=== PATIENT | female | born 1970 | race Caucasian/White ===

== ENCOUNTER → 2022-11-19 08:59 | Outpatient (BNVA) | payer OTHER, SELFPAY | PROVIDERS: PCP Nurse Practitioner Family; Visit Provider Hospitalist | DX: J44.9 Chronic obstructive pulmonary disease, unspecified (principal) ==

== ENCOUNTER 2025-02-16 15:37 | Outpatient (AMB) | payer BC, SELFPAY ==
--- OUTSIDE RECORDS SUMMARY | 2025-02-16 15:39 | XMS_ITS | Continuity of Care Document ---
Author Name [facility] Organization [facility] Care Team Providers Care Tuyere Fitter Name Role Phone [facility] Unavailable Unavailable Social History Combined list of available smoking, tobacco, and other social history from Department of Defense and Veterans Affairs facilities. Social History Type Response Date Comment Sourc e This section is an empty social history section. [facility]
[2025-02-16 15:56] VITALS: BP 132/82; PULSE 75; O2SAT 98; BMI 25.2
--- NOTE | 2025-02-16 15:56 | MHC.OFFVIS ---
Vital Signs 02/16/25 15:56 Height 5 ft 6 in Weight 156 lb BMI 25.2 BP 132/82 Blood Pressure Location Lt brachial Position Sitting Pulse 75 Pulse Source Pulse Oximeter Pulse Oximetry (%) 98 Oxygen Delivery Method Room Air Intake Visit Reasons: asthma Intake Note: pt is here for sick visit and states coughing, wheezing and had zpal, prednisone, symbicort albuterol neb and soem relief with z-chris but she having heaviness of in chest and short of breath, prednisone was 4 days 40mg with no taper. and z-chris. chest x-ray, covid flu,rsv all negative on Thursday. 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 Works in [employer] She has previous history of bronchial asthma/hyperreactive airways, with intermittent flare ups. Normally she uses Symbicort but only p.r.n.. She also has albuterol solution to use in the nebulizer and also albuterol HFA which she uses PRN. This time she was doing okay up until about 10 days ago. She was working out in the garden to get the ground ready for planting. Next day she started having scratchy throat, with mild nasal congestion and cough. It persisted for more than a few days and then she went to an urgent care clinic. Were she did have a chest x-ray and was told that it was negative. In addition to Symbicort and albuterol she was also given a course of prednisone which she has completed, and Z-Chris which also she has completed. While acute symptoms are over, she continues to have frequent bouts of cough, with some scratchy feeling in the throat. She denies any nasal congestion or postnasal drip. [facility] Medical History Asthma Pneumonia Social History Patient Tobacco Use Status: Never used Tobacco Review of Systems Const All systems reviewed & are unremarkable except as noted in HPI and below Eyes Reports no additional complaints ENT Reports nasal congestion (mild ) Card Reports no additional complaints Resp Reports as per HPI GI Reports no additional complaints Reports no additional complaints Musc Reports no additional complaints Skin/Breast Reports system reviewed and no additional complaints, except as documented Neuro Reports no additional complaints Psych Reports no additional complaints Endo Reports no additional complaints Scott/Lymph Reports no additional complaints Aller/Immun Reports no additional complaints Physical Exam Vital Signs: Last Vital Signs Pulse 75 02/16/25 15:56 BP 132/82 02/16/25 15:56 Pulse Ox 98 02/16/25 15:56 Oxygen Delivery Method Room Air 02/16/25 15:56 BMI result Body Mass Index 25.2 Const General: healthy appearing, comfortable, no acute distress, alert and awake Orientation/consciousness: patient oriented x3 HEENT Head: Yes normal to inspection General nose exam: No nasal polyps present and No nasal discharge present Face and sinus: Yes sinuses nontender Mouth: oropharynx normal Throat: Yes posterior oropharynx normal Eyes General: appearance normal, both eyes and all related structures Neck Neck: Yes normal visual inspection, Yes no lymphadenopathy, Yes trachea midline and Yes no JVD Thyroid: Thyroid normal Chest Chest palpation & inspection: normal inspection of the chest, normal palpation of entire chest wall and no tenderness Resp Other: Chest is symmetrical, percussion note resonant, she has equal breath sounds on both sides. She coughs when asked to take a deep breath. But does not have any audible wheezes or rhonchi. Cardio Palpation: normal PMI Rate: regular rate Rhythm: regular rhythm Heart sounds: no gallops and no murmurs Peripheral pulses: Peripheral pulses 2+ throughout GI Palpation (GI): Soft to palpation, nontender, No hepatosplenomegaly present and no masses Auscultation: normal bowel sounds Back/Spine/Pelvis Thoracic/Lumbar Spine: thoracic and lumbar spine normal to inspection Skin General skin exam: no rashes or lesions noted Neuro General: patient oriented x3 and no focal motor deficits Cranial nerves: Yes CN's II-XII intact bilaterally Extrem General: Yes normal to inspection, Yes no clubbing, cyanosis or edema and Yes no calf tenderness Psych Appearance: grossly normal and well kempt Speech and movement: Normal speech and movement present Assessment & Plan Assessment & Plan (1) Asthma: Comment: Patient has history of mild intermittent bronchial asthma, and reactive airways. No particular triggers are described. However she does get flare ups after any viral respiratory infection, or exposure to dust or fumes. Presently she is having a flare up/exacerbation of bronchial asthma/ reactive airways. Probably after exposure to an irritant environmental agent. Code(s): J45.909 - Unspecified asthma, uncomplicated Category: Medical Qualifiers: Asthma severity: mild Asthma persistence: intermittent Asthma complication type: uncomplicated Qualified Code(s): J45.20 - Mild intermittent asthma, uncomplicated Plan: I have ordered CBC with diff, to check for Eiosinophilia . And also IgE level . Treatment plan : Continue Symbicort 160-4.52 puffs b.i.d.. Albuterol HFA 2 puffs Q 6 hours p.r.n. Or alternatively use albuterol solution in the nebulizer Q 4-6 hours p.r.n., No need to use any antibiotic agents at this time. Also I do not think that she will benefit from any additional prednisone at this time. Gargle throat with warm water 2 or 3 times a day Feel free to call and discuss about the progress in 1 week to 10 days. Orders: Orders Immunoglobulin E Today J45.20 - Mild intermittent asthma, uncomplicated, J45.998 - Other asthma Complete Blood Count Auto Diff Today J45.20 - Mild intermittent asthma, uncomplicated, J45.998 - Other asthma Coding Level of Care Code Est Pt Level 3 (87328) Diagnoses Mild intermittent asthma without complication J45.20 Asthma severity: mild Asthma persistence: intermittent Asthma complication type: uncomplicated
== END 2025-02-16 16:19 | disposition home or self-care (01) ==
LOC: HO.HPS 15:38
PROVIDERS: PCP Student in an Organized Health Care Education/Training Program; Visit Provider Internal Medicine
DX: J45.20 Mild intermittent asthma, uncomplicated (principal)
CPT/HCPCS: 99213

== ENCOUNTER 2025-02-16 15:37 | Outpatient (REF) | payer BC, SELFPAY ==
[2025-02-16 16:36] LABS: MANUAL DIFF FLAG NO
[2025-02-16 17:06] LABS: Basophils Percent Auto 0.3 % (0-2); Eosinophils Absolute Auto 0.1 X10*3/uL (0.0-0.4); Eosinophils Percent Auto 1.3 % (0-4); Hematocrit 39.5 % (37.0-47.0); Hemoglobin 13.2 g/dl (12.0-16.0); Imm Gran Abs Auto 0.04 X10*3/uL (0.00-0.03); Imm Gran Pct Auto 0.6 % (0.0-0.4); Lymphocytes Absolute Auto 2.6 X10*3/uL (1.2-4.9); Mean Corpuscular HGB Conc 33.4 g/dl (31.0-35.0); Mean Corpuscular Hemoglobin 29.7 pg (27.0-33.0); Mean Corpuscular Volume 88.8 fL (80.0-98.0); Mean Platelet Volume 9.9 fL (9.4-12.3); Monocytes Absolute Auto 0.4 X10*3/uL (0.1-1.2); Monocytes Percent Auto 7.1 % (2-11); Neutrophils Absolute Auto 3.1 x10*3/uL (2.0-8.3); Neutrophils Percent Auto 49.7 % (45-73); Platelet Count 325 X10*3/uL (160-400); Red Blood Count 4.45 X10*6/uL (4.20-5.50); Red Cell Distribution Width 13.7 % (11.0-16.0); White Blood Count 6.2 X10*3/uL (4.8-10.8)
[2025-02-17 06:19] LABS: Immunoglobulin E 43 kU/L (<OR=114)
== END 2025-02-16 15:38 | disposition home or self-care (01) ==
LOC: HO.LAB 15:37
PROVIDERS: PCP Student in an Organized Health Care Education/Training Program; Visit Provider Internal Medicine
DX: J45.20 Mild intermittent asthma, uncomplicated (principal)
CPT/HCPCS: 36415; 82785; 85025

== ENCOUNTER 2025-04-28 15:20 | Outpatient (AMB) | payer BC, SELFPAY ==
--- OUTSIDE RECORDS SUMMARY | 2025-02-11 09:29 | XMS_ITS | Encounter Summary ---
Author Organization [facility] Address [address] [place] [id number] Phone Care Team Providers Care Service Advocate Contact Name Role Phone Lara Negron NEGOTIATOR SALES Unavailable [phone] Jignesh Ferraro EXCAVATOR BACKHOE OPERATOR Primary Care Provider [facility] Unavailable Encounter Details Date Type Department Care Team (Late st Contact Info) Description 02/11/2025 9:29 AM EDT Hospital Encounter [facility] [address] [place] [id number] Sharon Willis FNP [address] [place] [phone] [email or web address] Social History Tobacco Use Types Packs/Day Years Used Date Smoking Tobacco: Never Smokeless Tobacco: Never Alcohol Use Standard Drinks/Week Comments Yes 0 (1 standard drink = 0.6 oz pur e alcohol) 1.5-2 drinks, 2 x month Child or Family Care Answer Date Record ed Do you have problems with on e of the following making it difficult for you to work, study, or receive health care? No 02/07/2025 Education Answer Date Recorded Are you interested in help w ith more adult education (for example, completing high school, GED, job training, learning the Somali language, technical skills, or developing parenting skills)? No 02/07/2025 Are you concerned about learning? Not on file 02/07/2025 No 02/07/2025 Yes 02/07/2025 Food Answer Date Recorded Within the past 6 months we worried whether our food would run out before we got money to buy more. Never True 02/07/2025 Within the past 6 months the food we bought just didn't last and we didn't have enough money to get more. Never True Residential Stability Answer Date Recor ded What is your housing situation today? I have sada sing 02/07/2025 How many times have you move d in the past 12 months? Zero (I did not move) 02/07/2025 Paying for Meds Answer Date Recorded Do you have trouble paying for medicines? No 02/07/2025 Paying Utility Bills Answer Date Record ed Do you have trouble paying your heating or elect ricity bill? No 02/07/2025 Transportation Answer Date Recorded Has the lack of transportati on kept you from medical appointments or from getting medications? No 02/07/2025 Unemployment Answer Date Recorded Are you currently unemployed or working on a part-time or temporary basis, and looking for work? No 01/14/2022 Digital Access Answer Date Recorded No 02/07/2025 Yes 02/07/2025 Do you have reliable internet access at home? Ye s 02/07/2025 Do you have a device (e.g., phone, tablet, computer) with a working camera? Yes 02/07/2025 Intimate Partner Violence Answer Date R ecorded Denied Basic Needs Not on file 02/07/2025 In the past 12 months have y ou been in a relationship with a person who hurts, threatens, or tries to control you? No 02/07/2025 Worried food would run out Not on file 02/07 In the past 12 months have y ou been in a relationship with a person who hurts, threatens, or tries to control you? 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 Not on file Not on file documented as of this encounter Plan of Treatment Upcoming Encounters Date Type Department Care Team (Late st Contact Info) Description 02/20/2026 8:30 AM EDT Office Visit [facility] [address] [place] [address] Ferarro Jigneshjeri Hong, EXCAVATOR BACKHOE OPERATOR [address], [address] [place] [address] [email or web address] documented as of this encounter Procedures Procedure Name Priority Date/Time Associated Diagnosis Comments XR CHEST PA AND LATERAL 2 VIEWS Urgent/patient waiting 02/11/2025 9:34 AM EDT Acute upper respiratory infection documented in this encounter Results * XR CHEST PA AND LATERAL 2 VIEWS (02/11/2025 9:34 AM EDT) Anatomical Region Laterality Modality Chest Computed Radiogr aphy 02/11/2025 10:0 1 AM EDT Impressions 02/11/2025 10:02 AM EDT No acute abnormality. Narrative 02/11/2025 10:02 AM EDT XR CHEST PA AND LATERAL 2 VIEWS Referring clinician's provided indication for this examination in [facility]: Cough; sob, wheezing, asthma exac COMPARISON: None FINDINGS: Devices/Tubes/Lines: None. Lungs: The lungs are clear. No focal consolidation or pulmonary edema. Pleura: No pleural effusion or pneumothorax. Heart/Mediastinum: Normal heart and mediastinum. Bones/Soft Tissues: No significant skeletal abnormality. Procedure Note Jorje Hu MD - 02/11/2025 XR CHEST PA AND LATERAL 2 VIEWS Referring clinician's provided indication for this examination in [facility]:Cough; sob, wheezing, asthma exac COMPARISON: None FINDINGS: Devices/Tubes/Lines: None. Lungs: The lungs are clear. No focal consolidation or pulmonary edema. Pleura: No pleural effusion or pneumothorax. Heart/Mediastinum: Normal heart and mediastinum. Bones/Soft Tissues: No significant skeletal abnormality. IMPRESSION: No acute abnormality. us Sharon Willis FRAME STRAIGHTENER IMG XR CHEST Final Resul t documented in this encounter Visit Diagnoses Not on filedocumented in this encounter Additional Health Concerns Assessment Noted Time PHQ-2 Depression Total Score: 0 02/08/20 25 5:35 AM EDT documented as of this encounter Care Teams Service Advocate Contact Relationship Specialty Start Date End Date Jignesh Ferraro CNP [address] [place] [address], [address] [place] [address] PCP - General Family Medicine 11/17/23 Lara Negron NP [address] [place] [phone] Gynecology 11/02/19 Sheri Moore [address] [place] [address], [address] [place] [id number] [email or web address] Insurance Assigned Provider 11/05/24 documented as of this encounter Additional Source Comments The information contained in this document represents components of the legal health record. It is not the complete legal health record.[facility]
--- OUTSIDE RECORDS SUMMARY | 2025-04-28 15:22 | XMS_ITS | Continuity of Care Document ---
Author Name [facility] Organization [facility] Care Team Providers Care Director And Professor Name Role Phone [facility] Unavailable Unavailable Social History Combined list of available smoking, tobacco, and other social history from Department of Defense and Veterans Affairs facilities. Social History Type Response Date Comment Sourc e This section is an empty social history section. [facility]
--- NOTE | 2025-04-28 15:28 | A.OFFVIS_ITS ---
Vital Signs 04/28/25 15:29 Height 5 ft 6 in Weight 153 lb 3.54 oz BMI 24.7 BP 114/72 Blood Pressure Location Lt brachial Position Sitting Pulse 72 Pulse Source Pulse Oximeter Pulse Oximetry (%) 98 Oxygen Delivery Method Room Air Intake Visit Reasons: Asthma Wellness Instructor Required: No Accompanied by: Self / Same As Patient Allergies morphine (MORPHINE) Allergy (Intermediate, Verified 04/28/25 15:31) RASH Leonidas Dye Allergy (Unknown, Uncoded 02/16/25 16:22) Rash HPI Comments Details: The patient is a 54-year-old woman with a history of pneumonia and reactive airway disease. Apparently she was in her usual state health until couple weeks ago when she was exposed to COVID-19 from her . She had tested positive and has been quarantine. She developed a worsening cough and sinus congestion. She also developed chest tightness and shortness of breath. She had been using her rescue inhaler. She does have a nebulizer at home but she is not using it. She states that slowly she has been feeling better. Although, her cough tends to keep her up has a hard time sleeping. On examination she does have some wheezing throughout primarily in the expiratory phase. No crackles or rales so suggest recurrent pneumonia. The patient is no longer expectorating. Her cough is primarily dry hacky cough moderate severity. 11/19/2022 the patient is here for a pulmonary follow-up visit. The patient overall is feeling well. Back in August she did develop COVID again. However was not as bad as before. She did not take packs lobe it. The patient did write out. She did take her Symbicort more often. She did not use the albuterol because some cough significant amount of tremulousness and palpitations. Currently she is back to her baseline. She is taking the Symbicort as needed. The patient denies any shortness of breath or any residual symptoms. The patient does not have any recent x-rays or PFTs to review. Clinically the patient doing well. Her examination is also reassuring. Therefore go ahead and postpone her PFTs to next year along with a chest x-ray. In the meantime and the patient develops any worsening symptoms prior to that she is to call the office for an earlier evaluation. 04/28/2025 the patient is here for a pulmonary follow-up visit. She was sick back in January with a respiratory illness. She had blood work at that point the patient did have a elevation did granulocyte count suggesting infectious process although she also had exposure to dust suggesting the possibility of an allergic reaction. She did require prednisone. She had been using her nebulizer which was helpful and also her Symbicort. Now she is back to her baseline. She did have a chest x-ray in the [facility] and was per report okay. Therefore no additional imaging studies require. Her respiratory exam is reassuring completely normal. I will make sure for her to have all her medications available. If she has any other exacerbations she can always call. But for now she will continue with her current respiratory therapy. Will follo w-up in a year's time if she has any issues prior to that she will call further recommendations. [facility] Medical History Asthma Pneumonia Social History Patient Tobacco Use Status: Never used Tobacco Review of Systems Const Denies excessive sweating and Denies fever(s) Eyes Denies change in vision ENT Reports nasal congestion and Reports nasal discharge Card Denies chest pain Resp Denies change in phlegm color, Denies chest congestion, Reports cough, Denies pain on inspiration, Denies pain with cough and Denies wheezing GI Reports no additional complaints Musc Reports no additional complaints Skin/Breast Denies rash Neuro Reports no additional complaints Endo Denies excessive sweating Scott/Lymph Denies easy bleeding and Denies lymphadenopathy Aller/Immun Denies wheezing Physical Exam Vital Signs: Last Vital Signs Pulse 72 04/28/25 15:29 BP 114/72 04/28/25 15:29 Pulse Ox 98 04/28/25 15:29 Oxygen Delivery Method Room Air 04/28/25 15:29 BMI result Body Mass Index 24.7 Const General: comfortable Eyes General: appearance normal, both eyes and all related structures Neck Neck: Yes supple Chest Chest palpation & inspection: normal inspection of the chest Resp Auscultation: clear to auscultation bilaterally, no crackles, no rales, no rhonchi and no wheezes Cardio Rate: regular rate Rhythm: regular rhythm Heart sounds: S1 normal heart sound present and S2 normal heart sound present GI Inspection: Yes normal to inspection Skin General skin exam: no rashes or lesions noted Extrem General: Yes no clubbing, cyanosis or edema Assessment & Plan Assessment & Plan (1) Asthma: Code(s): J45.909 - Unspecified asthma, uncomplicated Category: Medical Qualifiers: Asthma complication type: uncomplicated Asthma persistence: intermittent Asthma severity: mild Qualified Code(s): J45.20 - Mild in termittent asthma, uncomplicated Plan continue Symbicort KAMALA as needed, will; send xopenex to minimize adverse effects tessalon pearls as needed F/U 12 months or sooner if any issues arise Medications: New prednisone PO daily; Take 6 tabs daily x 3 days, then 5 tabs x 3 days, then 4 tabs x 3 days, then 3 tabs x 3 days, then 2 tabs daily x 3 days, then 1 tab x 3 days to complete. 63 tabs 0RF 18 days albuterol sulfate 2.5 mg (3 mL) inhalation Q6H PRN 90 mL 11RF shortness of breath or wheezing 30 days Changed From albuterol sulfate 90 mcg/actuation 1 inh inhalation QID To albuterol sulfate 90 mcg/actuation 2 inhalations inhalation QID PRN 8.5 grams 11RF shortness of breath or wheezing Coding Level of Care Code Est Pt Level 4 (24151) Diagnoses Mild intermittent asthma without complication J45.20 Asthma complication type: uncomplicated Asthma persistence: intermittent Asthma severity: mild Time Spent (min) 16
[2025-04-28 15:29] VITALS: BP 114/72; PULSE 72; O2SAT 98; BMI 24.7
== END 2025-04-28 15:47 | disposition home or self-care (01) ==
LOC: HO.HPS 15:21
PROVIDERS: PCP Student in an Organized Health Care Education/Training Program; Visit Provider Hospitalist
DX: J45.20 Mild intermittent asthma, uncomplicated (principal)
CPT/HCPCS: 99214